=== PATIENT | female | born 1975 | race Caucasian/White ===

== ENCOUNTER 2017-08-28 15:19 | Emergency (ER) | payer MEDICAID, OTHER ==
[~2017-08-28] VITALS: Ht 162.6 cm; Wt 91.0 kg
[~2017-08-28 15:19] MED LIST: HYDR-1348; LACT10SO7 PO; METR500T PO; MOXI400T3; OMEP40CA34 PO; WARFARIN
[2017-08-28 15:45] VITALS: BP 101/61
== END 2017-08-28 18:56 | disposition left against medical advice (07) ==
LOC: ER 17:53
DX: M79.641 Pain in right hand (principal); E11.9 Type 2 diabetes mellitus without complications; Z87.828 Personal history of other (healed) physical injury and trauma
CPT/HCPCS: 99281